=== PATIENT | male | born 1990 | race Caucasian/White ===

== ENCOUNTER → 2018-11-04 | Outpatient (CLI) | payer SELFPAY ==
[~2018-11-04] MED LIST: BETA.05TCA TP; CETI5 PO; ESCI10 PO; HYDACE5 PO; PROM25 PO; RXPROM25 PO
[2018-11-04 14:32] LABS: Hematocrit 43.4 % (37.0-53.0); Hemoglobin 15.6 g/dL (13.5-17.5); Mean Corpuscular HGB 30.8 pg (26.0-34.0); Mean Corpuscular HGB Conc 35.9 g/dL (31.5-36.5); Mean Corpuscular Volume 86 fL (80-100); Mean Platelet Volume 10.2 fL (9.1-12.4); Platelet Count 170 K/mm3 (150-400); RDW Coefficient Variation 11.6 % (11.7-14.2); RDW Standard Deviation 36.2 fL (35.1-46.3); Red Blood Cell Count 5.06 M/mm3 (4.30-5.90); White Blood Cell Count 12.71 K/mm3 (4.00-11.30)
[2018-11-04 14:36] LABS: Anion Gap 12 mmol/L (6-16); Blood Urea Nitrogen 11 mg/dL (8-24); Bun/Creatinine Ratio 8.7 (12.0-20.0); CO2, Blood 23 mmol/L (21-32); Calcium, Blood 8.6 mg/dL (8.5-10.1); Chloride, Blood 100 mmol/L (98-108); Creatinine, Blood 1.26 mg/dL (0.60-1.20); Glomerular Filtration Rate >60 (60-); Glucose, Blood 98 mg/dL (70-99); Potassium, Blood 3.7 mmol/L (3.5-5.5); Sodium, Blood 135 mmol/L (136-145)
[2018-11-04 15:05] LABS: BASOPHILS PERCENT MAN 0 % (0-2); EOSINOPHILS ABSOLUTE MAN 0.12 K/mm3 (0.00-0.68); EOSINOPHILS PERCENT MAN 1 % (0-6); LYMPHOCYTES % ATYPICAL MANUAL 19 % (0-0); LYMPHOCYTES ABSOLUTE MAN 6.99 K/mm3 (0.84-5.20); LYMPHOCYTES PERCENT MAN 36 % (21-46); MONOCYTES ABSOLUTE MAN 0.25 K/mm3 (0.16-1.47); MONOCYTES PERCENT MAN 2 % (4-13); NEUTROPHILS ABSOLUTE MAN 5.33 K/mm3 (1.96-9.15); SEG NEUTROPHILS PERCENT MAN 42 % (41-73); TOTAL CELLS COUNTED 100
== END ==
LOC: LAB SHORT 14:27 → LAB EV 14:27
PROVIDERS: Emergency Medicine
DX: R50.9 Fever, unspecified (principal)
CPT/HCPCS: 80048; 85025; 86308

== ENCOUNTER → 2023-07-04 | Outpatient (CLI) | payer OTHER | END | disposition home or self-care (01) | LOC: LAB SHORT 13:23 → LAB 13:23 | DX: J02.9 Acute pharyngitis, unspecified (principal) | CPT/HCPCS: 87081 ==

== ENCOUNTER 2023-12-22 09:18 | Emergency (ER) | payer OTHER ==
[~2023-12-22] VITALS: Ht 170.2 cm; Wt 83.5 kg
[2023-12-22 09:21] VITALS: BP 124/90
[2023-12-22] MEDS ORDERED: Ketorolac Tromethamine 30mg Vial IM ONE (09:40)
[2023-12-22] MEDS ORDERED: Methocarbamol 500 MG Tab PO ONE (09:45)
[2023-12-22] MEDS ORDERED: Robaxin750 MG PO (11:05)
[2023-12-22] MEDS ORDERED: IBUP800 PO (11:05)
== END 2023-12-22 11:27 | disposition home or self-care (01) ==
LOC: ER 09:18
DX: M54.50 Low back pain, unspecified (principal); G89.29 Other chronic pain; Z79.899 Other long term (current) drug therapy; Z88.2 Allergy status to sulfonamides
CPT/HCPCS: A9270; J1885

== ENCOUNTER 2024-07-05 12:20 | Emergency (ER) | payer OTHER ==
[~2024-07-05] VITALS: Ht 170.2 cm; Wt 90.7 kg
[~2024-07-05 12:20] MED LIST changes: +IBUP800 PO; +Robaxin750 MG PO
[2024-07-05 12:47] LABS: BASOPHILS ABSOLUTE AUTO 0.02 K/mm3 (0.00-0.23); BASOPHILS PERCENT AUTO 0 % (0-2); EOSINOPHILS ABSOLUTE AUTO 0.07 K/mm3 (0.00-0.68); EOSINOPHILS PERCENT AUTO 1 % (0-6); Hematocrit 48.1 % (37.0-53.0); Hemoglobin 17.5 g/dL (13.5-17.5); IMMATURE GRAN ABSOLUTE AUTO 0.03 K/mm3 (0.00-0.10); IMMATURE GRAN PERCENT AUTO 0 % (0-1); LYMPHOCYTES ABSOLUTE AUTO 1.31 K/mm3 (0.84-5.20); LYMPHOCYTES PERCENT AUTO 16 % (21-46); MONOCYTES ABSOLUTE AUTO 0.34 K/mm3 (0.16-1.47); MONOCYTES PERCENT AUTO 4 % (4-13); Mean Corpuscular HGB 31.5 pg (26.0-34.0); Mean Corpuscular HGB Conc 36.4 g/dL (31.5-36.5); Mean Corpuscular Volume 87 fL (80-100); Mean Platelet Volume 9.9 fL (9.1-12.4); NEUTROPHILS ABSOLUTE AUTO 6.61 K/mm3 (1.96-9.15); NEUTROPHILS PERCENT AUTO 79 % (41-73); Platelet Count 161 K/mm3 (150-400); RDW Coefficient Variation 11.5 % (11.7-14.2); RDW Standard Deviation 37.1 fL (35.1-46.3); Red Blood Cell Count 5.55 M/mm3 (4.30-5.90); White Blood Cell Count 8.38 K/mm3 (4.00-11.30)
[2024-07-05 13:02] LABS: Albumin, Blood 3.7 g/dL (3.4-5.0); Bilirubin, Total 0.4 mg/dL (0.1-1.0); Bun/Creatinine Ratio 13.9 (12.0-20.0); Calcium, Blood 8.8 mg/dL (8.5-10.1); Creatinine, Blood 0.94 mg/dL (0.60-1.20); Globulin, Blood 3.8 g/dL (2.2-4.0); Potassium, Blood 3.8 mmol/L (3.5-5.5); Total Protein, Blood 7.5 g/dL (6.4-8.2)
[2024-07-05] MEDS ORDERED: Methocarbamol750 MG PO (13:04)
[2024-07-05 13:29] LABS: Influenza A, PCR NEGATIVE (NEGATIVE); Influenza B, PCR NEGATIVE (NEGATIVE); Resp Syncytial Virus, PCR NEGATIVE (NEGATIVE); SARS-Cov-2 (COVID-19) PCR, MMC NEGATIVE (NEGATIVE)
[2024-07-05] MEDS ORDERED: Acetaminophen 500 MG Tab PO ONE (13:45)
[2024-07-05] MEDS ORDERED: Ketorolac Tromethamine 15mg Vial IV ONE (13:45)
[2024-07-05] MEDS ORDERED: NS 1,000 ML IV SCH (13:50)
[2024-07-05 15:00] VITALS: BP 119/80
== END 2024-07-05 15:09 | disposition home or self-care (01) ==
LOC: ER 12:20
PROVIDERS: Physician Assistant
DX: R07.89 Other chest pain (principal); B34.9 Viral infection, unspecified
CPT/HCPCS: 0241U; 71046; 80053; 84484; 85025; 93005; 93010; 96361; 96374; 99285-25; A9270; J1885; J7030